=== PATIENT | male | born 1950 | race Caucasian/White ===

== ENCOUNTER 2021-06-24 14:13 | Inpatient (IN) | payer MEDICARE, OTHER ==
[~2021-06-24] VITALS: Ht 172.7 cm; Wt 93.9 kg
[~2021-06-24 14:13] MED LIST: KLONOPIN1 MG PO; LOVENOX SY40 MG/0.4 SQ; NABUMETONE500 MG PO; NORCO 10-325 T1 EACH PO; PREVACID30 MG PO; Voltaren Gel 1 % TOP
[2021-06-24 14:49] LABS: HEMOGLOBIN 16.9 gm/dl (14.0-17.5); RED BLOOD COUNT 5.68 M/UL (4.20-5.50); WHITE BLOOD COUNT 6.2 K/UL (4.5-11.0)
[2021-06-24 15:14] LABS: BUN/CREATININE RATIO 9 (0-10)
[2021-06-25 02:23] LABS: HEMOGLOBIN 16.3 gm/dl (14.0-17.5); RED BLOOD COUNT 5.56 M/UL (4.20-5.50)
[2021-06-25 02:27] LABS: WHITE BLOOD COUNT 4.2 K/UL (4.5-11.0)
[2021-06-25 02:49] LABS: BUN/CREATININE RATIO 14 (0-10)
[2021-06-26 02:51] LABS: HEMOGLOBIN 15.7 gm/dl (14.0-17.5); RED BLOOD COUNT 5.35 M/UL (4.20-5.50)
[2021-06-26 02:58] LABS: WHITE BLOOD COUNT 10.9 K/UL (4.5-11.0)
[2021-06-26 03:26] LABS: BUN/CREATININE RATIO 22 (0-10)
[2021-06-27 02:42] LABS: HEMOGLOBIN 15.5 gm/dl (14.0-17.5); RED BLOOD COUNT 5.34 M/UL (4.20-5.50); WHITE BLOOD COUNT 9.7 K/UL (4.5-11.0)
[2021-06-28] MEDS ORDERED: ELIQUIS 5 MG TAB5 MG PO (16:02)
[2021-06-28] MEDS ORDERED: DECADRON6 MG PO (16:02)
[2021-06-28] MEDS ORDERED: IPRATROPIU0.2 MG/1 M NEB (16:02)
[2021-06-28] MEDS ORDERED: METOPROLOL SUCC25 MG PO (16:02)
[2021-06-28] MEDS ORDERED: LEVALBUTER0.63 MG/3 NEB (16:02)
[2021-06-28] MEDS ORDERED: BUDESONIDE0.5 MG/2 M NEB (16:02)
== END 2021-06-28 18:34 | disposition home or self-care (01) | DRG 177 ==
LOC: ER1 14:13 → CDU 16:04 → PROG CARE 06-25 19:55 → M/S 06-27 20:32
PROVIDERS: Emergency Medicine; ADMIT Internal Medicine
PROC: XW033E5 Introduction of Remdesivir Anti-infective into Peripheral Vein, Percutaneous Approach, New Technology Group 5 (ICD-10-PCS; 2021-06-24)
PROC: 8E0ZXY6 Isolation (ICD-10-PCS; 2021-06-24)
PROC: 3E0333Z Introduction of Anti-inflammatory into Peripheral Vein, Percutaneous Approach (ICD-10-PCS; 2021-06-24)
PROC: B24BZZ4 Ultrasonography of Heart with Aorta, Transesophageal (ICD-10-PCS; principal; 2021-06-26)
DX: U07.1 COVID-19 (principal); J96.01 Acute respiratory failure with hypoxia; G93.41 Metabolic encephalopathy; J12.82 Pneumonia due to coronavirus disease 2019; F11.20 Opioid dependence, uncomplicated; I48.0 Paroxysmal atrial fibrillation; F17.220 Nicotine dependence, chewing tobacco, uncomplicated; K21.9 Gastro-esophageal reflux disease without esophagitis; E66.9 Obesity, unspecified; G89.29 Other chronic pain; F41.9 Anxiety disorder, unspecified; Z79.01 Long term (current) use of anticoagulants; Z90.49 Acquired absence of other specified parts of digestive tract; Z98.890 Other specified postprocedural states; Z68.31 Body mass index [BMI] 31.0-31.9, adult
CPT/HCPCS: ECHO; 0240U; 36415; 36600; 71045; 80053; 81001; 82550; 82553; 82803; 83605; 83874; 83880; 84439; 84443; 84484; 85025; 85027; 85379; 86140; 87040; 93005; 93306; 94640; 94664; 94760; 96374; 96375; 96376; 99285; J0248; J0696; J1100; J7030; J7040; J7050